=== PATIENT | male | born 1960 | race Caucasian/White ===

== ENCOUNTER 2016-06-24 07:17 | Outpatient (CLI) | payer OTHER | END 2016-06-24 07:18 | disposition home or self-care (01) | DX: I10 Essential (primary) hypertension (principal); E78.5 Hyperlipidemia, unspecified; E74.39 Other disorders of intestinal carbohydrate absorption ==

== ENCOUNTER 2016-10-21 07:08 | Outpatient (CLI) | payer OTHER | END 2016-10-21 07:09 | disposition home or self-care (01) | DX: I10 Essential (primary) hypertension (principal) ==

== ENCOUNTER 2023-01-15 13:10 | Outpatient (CLI) | payer OTHER ==
[2023-01-15] MEDS ORDERED: iohexoL-300 100 ML VIAL IVP ONE (15:06)
--- NOTE | 2023-01-15 18:28 | CT Report ---
PROCEDURE: IVP INDICATIONS: URINARY RETENTION CONTRAST: 100mL Omni 300 TECHNIQUE: Noncontrast images of the abdomen and pelvis obtained. After the administration of intravenous contra st, 5 mm thick sections acquired from the diaphragms to the symphysis. 5 mm thick coronal and sagitt al reformats were acquired. For radiation dose reduction, the following was used: automated exposur e control, adjustment of mA and/or kV according to patient size. COMPARISON: None. FINDINGS: Visualized lung bases: No pleural effusion. Liver and biliary tree: No suspect focal hepatic lesion. No biliary ductal dilation. Gallbladder: No radiopaque cholelithiasis. Spleen: Unremarkable. Pancreas: Unremarkable. Adrenal glands: Unremarkable. Kidneys and ureters: Large enhancing solid left renal mass, heterogeneously attenuating with possible cystic or necrotic components. Approximate dimensions of 14.7 x 10.1 x 19.1 cm measured on series 6 image 37 and series 9 image 21. The mass abuts the left psoas muscle, perirenal fascia, and extends i nto the renal sinus. There is possible extension into the left renal vein versus contrast mixing beti fact. No hydronephrosis bilaterally. No definite evidence of a solid right renal mass. Gastrointestinal tract: No bowel obstruction. Moderate predominantly sigmoid colonic diverticulosis w ithout evidence of acute diverticulitis. Peritoneal cavity: No free air or free fluid. Bladder: Unremarkable. Pelvic organs: Unremarkable CT appearance. Vasculature: No abdominal aortic aneurysm. Lymph nodes: retroperitoneal adenopathy is present highly suspicious for metastatic disease, for exam ple a left periaortic lymph node measuring 3.7 x 3.3 cm on series 6 image 41. Abdominal wall: Fat-containing periumbilical hernia Musculoskeletal: Degenerative change of the spine. Lytic lesion involving the left iliac bone and lef t aspect of the sacrum with associated soft tissue component measuring 5.8 x 4.1 cm on series 6 image 76. Indeterminate lucent focus right femoral head on series 6 image 89, attention on follow-up recom mended. IMPRESSION: 1. Large left renal mass highly suspicious for neoplasm such as renal cell carcinoma. There is possib le involvement of the left renal vein versus contrast mixing artifact. 2. Retroperitoneal adenopathy is present suspicious for metastatic disease. 3. Left pelvic bony lesion with soft tissue component suspicious for osseous metastatic disease. Reviewed by: Bharathi Clark MD on 01/15/2023 6:27 PM PDT Approved by: Bharathi Clark MD on 01/15/2023 6:27 PM PDT Station ID: [id number]
== END 2023-01-15 13:11 | disposition home or self-care (01) ==
LOC: DI 13:10
PROVIDERS: ATTEND Registered Nurse
DX: N28.89 Other specified disorders of kidney and ureter (principal); R33.8 Other retention of urine; R31.9 Hematuria, unspecified; R59.0 Localized enlarged lymph nodes; M89.9 Disorder of bone, unspecified
CPT/HCPCS: 74178; Q9967

== ENCOUNTER 2023-01-24 11:36 | Outpatient (CLI) | payer OTHER ==
[2023-01-24 11:57] LABS: INR 1.1 (0.8-1.2)
== END 2023-01-24 11:37 | disposition home or self-care (01) ==
LOC: LAB 11:36
PROVIDERS: ATTEND Nurse Practitioner Acute Care
DX: N28.89 Other specified disorders of kidney and ureter (principal)
CPT/HCPCS: 36415; 85610

== ENCOUNTER 2023-02-03 16:11 | Emergency (ER) | payer OTHER ==
[2023-02-03 16:45] VITALS: O2SAT 97
[2023-02-03 17:12] LABS: BILIRUBIN,URINE NEGATIVE (NEGATIVE); GLUCOSE, URINE (UA) NEGATIVE (NEGATIVE); KETONES,URINE (UA) NEGATIVE (NEGATIVE); LEUKOCYTE ESTERASE, URINE TRACE (NEGATIVE); NITRITE,URINE NEGATIVE (NEGATIVE); OCCULT BLOOD,URINE NEGATIVE (NEGATIVE); PH,URINE 5.5 PH (5.0-7.5); PROTEIN,URINE TRACE mg/dL (NEGATIVE); UROBILINOGEN,URINE 0.2 (NORMAL) E.U./dL (NORMAL)
[2023-02-03 17:34] LABS: CLARITY,URINE CLEAR (CLEAR)
[2023-02-03 17:47] LABS: RBC,URINE 0-5 /HPF (0-5); SQUAMOUS EPITHELIAL CELL,UR NONE SEEN (<= Few)
[2023-02-03 17:48] LABS: BACTERIA,URINE Rare /HPF (None Seen); CRYSTALS,URINE 11-25 Uric Acid /LPF
--- NOTE | 2023-02-03 17:51 | Ultrasound Report ---
PROCEDURE: Testicle INDICATIONS: testicle swelling, left TECHNIQUE: Real-time scanning was performed of the scrotum and testicles, with image documentation. Color and p ulse Doppler interrogation was performed of both testicles. COMPARISON: None. FINDINGS: Right: Testicle is normal in size at 4.7 x 3.2 x 2.3 cm, and homogenous in echotexture. Epididymis is normal in overall size and morphology. Trace hydrocele. Prominent varicoceles. Overlying scrotal skin is normal in thickness. Left: Testicle is normal in size at 3.8 x 2.9 x 1.7 cm, and homogeneous in echotexture. Epididymis is normal in overall size and morphology. Left epididymis is not well seen. No hydrocele. Prominent v aricoceles. Overlying scrotal skin is normal in thickness. Doppler: Color and pulse Doppler demonstrate normal and symmetric arterial flow in both testicles. IMPRESSION: 1. Left epididymal tail is suboptimally seen. Blood flow appears symmetric. 2. Bilateral varicoceles. 3. No testicular mass. Reviewed by: Talha Miller MD on 02/03/2023 5:49 PM PDT Approved by: Talha Miller MD on 02/03/2023 5:49 PM PDT Station ID: [id number]
[2023-02-03 18:05] VITALS: BP 141/83
--- NOTE | 2023-02-03 18:14 | ED Physician Documentation ---
History of Present Illness - Stated complaint Stated Complaint: - Chief complaint Chief Complaint: General - History obtained from History obtained from: Patient - Additonal information Additional information: This is a 62-year-old male who is currently being evaluated for a large left renal mass and has a biopsy planned for 02/11, presents with several weeks of left scrotal swelling that has become somewhat more painful recently. He also said some swelling in the right but less so than the left. He does not have any dysuria urgency or frequency, no abdominal pain, no nausea vomiting no fever chills. He states he mentioned it to his glass cutter but they apparently told him to just monitor it. He then went into the clinic today and there was concern for acute problems he was sent to the ER for a scrotal ultrasound. He states pain and swelling improves if he lays down or elevates the area but he is on his feet most of the time for work. He has not attempted any medication for this issue. Review of Systems Constitutional: reports: Reviewed and negative Cardiac: reports: Reviewed and negative Respiratory: reports: Reviewed and negative GI: reports: Reviewed and negative : reports: Testicular pain, Testicular mass. denies: Dysuria, Frequency, Hesitancy, Unable to Void Skin: reports: Reviewed and negative PD PAST MEDICAL HISTORY - Past Medical History Past Medical History: Yes Cardiovascular: Hypertension, High cholesterol, Other Respiratory: Other Neuro: None Endocrine/Autoimmune: None GI: GERD, Hiatal hernia : None HEENT: None Psych: None Musculoskeletal: None, Other Derm: None - Past Surgical History Past Surgical History: Yes General: Colonoscopy, EGD - Present Medications Home Medications: Ambulatory Orders Medication Instructions Recorded Confirmed Lisinopril 1 tab PO DAILY 05/09/14 10/23/14 HYDROcod/ACETAM 5/325 [Parmelee 5/325] 1 - 2 tablet PO Q6H PRN #10 tablet 02/03/23 metFORMIN [Glucophage] 500 mg PO BID 02/03/23 - Allergies Allergies/Adverse Reactions: Allergies Allergy/AdvReac Type Severity Reaction Status Date / Time No Known Drug Allergies Allergy Verified 02/03/23 16:31 - Social History Does the pt smoke?: No Smoking Status: Never smoker Does the pt drink ETOH?: Yes Does the pt have substance abuse?: No - Immunizations Immunizations are current?: No Immunizations: TDAP >10years/unknown - POLST Patient has POLST: No PD ED PE NORMAL - Vitals Vital signs reviewed: Yes - General General: Alert and oriented X 3, No acute distress, Well developed/nourished - HEENT HEENT: Atraumatic, Moist mucous membranes - Male Male : Other (There is a large left variococele w/ likely some on the right as well. No scrotal erythema. mild bilat tenderness. No penile irritation, sores, or discharge. ) - Derm Derm: Normal color, Warm and dry Results - Vitals Vitals: Vital Signs - 24 hr 02/03/23 02/03/23 16:29 18:01 Temperature 36.2 C L 36.3 C L Heart Rate 94 87 Respiratory 19 16 Rate Blood Pressure 136/81 H 141/83 H O2 Saturation 97 97 Oxygen O2 Source Room air - Labs Labs: Laboratory Tests 02/03/23 17:04 Urine Color YELLOW Urine Clarity CLEAR Urine pH 5.5 Ur Specific [place] 1.025 Urine Protein TRACE Urine Glucose (UA) NEGATIVE Urine Ketones NEGATIVE Urine Occult Blood NEGATIVE Urine Nitrite NEGATIVE Urine Bilirubin NEGATIVE Urine Urobilinogen 0.2 (NORMAL) Ur Leukocyte Esterase TRACE H Urine RBC 0-5 Urine WBC 6-10 H Ur Squamous Epith Cells NONE SEEN Urine Crystals 11-25 Uric Acid Urine Bacteria Rare Ur Microscopic Review INDICATED Urine Culture Comments INDICATED - Rads (name of study) No standard instances Relevant Findings:: Final report received PD Medical Decision Making - ED course Complexity details: reviewed results, re-evaluated patient, considered differential, d/w patient ED course: 62-year-old male presented with left testicular swelling as described in HPI. The patient has had this for several weeks, does get better when he lays down, worse when he is on his legs all day. He is currently being evaluated for the left renal mass that it sounds like it is concerning for malignancy. We did obtain an ultrasound here which shows bilateral varicoceles, no obvious epididymitis. His Urinalysis shows trace leuk esterase and 6-10 WBCs but no other signs of UTI. The patient has not been a UTI symptoms therefore I will hold off on treatment pending culture. I discussed with patient that this is likely due to his renal mass and he should continue follow-up as planned for his left renal mass but I will also refer him medically to urology for follow-up. As needed for this issue. He was advised to keep elevated whenever possible, as this can help with swelling and discomfort. I will give him a short course of short-term pain medication though advised that typically Tylenol should be sufficient. Return precautions reviewed if any new or worsening symptoms. Departure - Departure Disposition: 01 Home, Self Care Clinical Impression: Left varicocele Condition: Good Instructions: ED Varicocele Follow-Up: Joao Haynes MD [Provider Admit Priv/Credential] - Prescriptions: HYDROcod/ACETAM 5/325 [Parmelee 5/325] 1 - 2 tablet PO Q6H PRN #10 tablet PRN Reason: Pain Comments: You have a large varicocele which may be related to the kidny mass you have. You will need to continue the plan for kidney biopsy and follow up with the specialists for that. I have also referred you to a local urologist named Dr. Joao Haynes; however, they typically will monitor these and I anticipate that they would wait until you have received a diagnosis and treatment for your kidney mass. You can keep the area elevated and often times the swelling goes now if you lay down. I have given you a short course of pain medication but please try to use sparingly. I am prescribing a short course of narcotic pain medication for you. These are potentially dangerous and addictive medications that should be used carefully. These medications may constipate you. Take an yrwl-zvr-[id number] stool softener (docusate) twice daily with plenty of water while taking these medications. If you go 24 hours without a bowel movement, take tveo-ebx-hahibxn miralax, per package instructions. Do not drink or drive while taking these medications. If you received narcotic or sedating medications while in the emergency department, do not drive for 24 hours. Store this medication in a safe, secure place and out of reach of children. It is a violation of federal law to give or sell this medication to another person or to use in a manner other than prescribed. The ED will not refill narcotic prescriptions, including prescriptions lost or stolen. To dispose of unwanted medications: 1. [facility]'s Office provides a drop box for medication in pill form only (no liquids) 8:00 am to 4:30 p.m. Thursday-Thursday in the lobby of the [facility], [address] [place] [address]. Empty pills into ziplock bag before disposal. Call [phone] for information. 2.[employer] is a free service available to all [facility] residents. Go to [email or web address]://[email or web address]/locations/[email or web address]/ Note that many narcotic pain relievers also contain Tylenol/acetaminophen. Please ensure that your total dose of acetaminophen from all sources does not exceed 3 g (3000 mg) per day. Forms: PCP List Discharge Date/Time: 02/03/23 18:01
== END 2023-02-03 18:01 | disposition home or self-care (01) ==
LOC: ED 16:11
DX: I86.1 Scrotal varices (principal); I10 Essential (primary) hypertension; E78.00 Pure hypercholesterolemia, unspecified
CPT/HCPCS: 81001; 81003; 87086; 99283; 99284

== ENCOUNTER 2023-02-19 16:59 | Outpatient (CLI) | payer OTHER ==
[2023-02-19 17:40] LABS: CREATININE 1.6 mg/dL (0.6-1.3)
== END 2023-02-19 17:00 | disposition home or self-care (01) ==
LOC: LAB 16:59
PROVIDERS: ATTEND Urology
DX: N28.89 Other specified disorders of kidney and ureter (principal)
CPT/HCPCS: 36415; 82565

== ENCOUNTER 2023-02-21 09:47 | Outpatient (CLI) | payer OTHER ==
[2023-02-21] MEDS ORDERED: iohexoL-300 100 ML VIAL IVP ONE (12:22)
--- NOTE | 2023-02-21 22:27 | CT Report ---
PROCEDURE: CHEST W INDICATIONS: KIDNEY CA STAGING CONTRAST: 100ml omni 300 TECHNIQUE: After the administration of intravenous contrast, 1 mm axial images were acquired from the pulmonary apices through the posterior costophrenic angles. Axial 5 mm soft tissue kernel reconstructions were performed as well as 8 mm axial MIP and coronal and sagittal 5 mm reformations. For radiation dose reduction, the following was used: automated exposure control, adjustment of mA and/or kV according to patient size. COMPARISON: Relation is made with overlapping portions of abdominal CT, 01/15/2023. FINDINGS: Image quality: Diagnostic Lungs and pleura: There is an ovoid nodule within the left upper lobe on series 3 image 109, measurin g 2.5 x 1.9 cm. Within the lingula, there is an ovoid nodule measuring 6 x 5 mm, as on series 3 image 163. Within the right lung apex, there is an additional nodule seen on series 3 image 37 measuring 4 x 3 m m. No consolidation. No pleural effusions. No pneumothorax. Mediastinum: Heart size is normal. No pericardial effusion. No large vessel abnormality. Incidental n ote is made of a common trunk off of the aorta of the right brachiocephalic artery and the left commo n carotid artery (bovine type aortic arch). This is considered to be a developmental variant of typic ally no clinical consequence. No mediastinal adenopathy by size criteria. Chest wall and lower neck: Thyroid is unremarkable. No axillary or supraclavicular adenopathy by size . Bones: No aggressive osseous abnormality. Upper Abdomen: A prominent left renal mass is partially seen. The visualized portions of the upper ab dominal structures are otherwise within normal limits. IMPRESSION: Bilateral pulmonary nodules are seen, which measure up to 2.5 cm. These represent metastatic disease until proven otherwise. Prominent left renal mass partially seen. No krystin suspicious bony lesions are seen. Additional findings: Bovine type aortic branching pattern. Reviewed by: Orion Mart MD on 02/21/2023 9:26 PM [facility] Approved by: Orion Mart MD on 02/21/2023 9:26 PM [facility] Station ID: [id number]
== END 2023-02-21 09:48 | disposition home or self-care (01) ==
LOC: DI 09:47
PROVIDERS: ATTEND Urology
DX: N28.89 Other specified disorders of kidney and ureter (principal); C78.02 Secondary malignant neoplasm of left lung; C78.01 Secondary malignant neoplasm of right lung
CPT/HCPCS: 71260; Q9967

== ENCOUNTER 2023-02-24 15:41 | Outpatient (CLI) | payer OTHER ==
--- NOTE | 2023-02-24 16:58 | XRAY Report ---
PROCEDURE: Eye Foreign Body INDICATIONS: RETAINED FOREIGN BODY IN UNSPECIFIED EYE TECHNIQUE: A single view of the orbits was acquired. COMPARISON: None. FINDINGS: Soft tissues: No metallic foreign bodies are visualized around the orbits. Bones: Bony structures appear unremarkable. Visualized sinuses appear clear. IMPRESSION: No radiopaque foreign body. Reviewed by: Yara Alba MD, PhD on 02/24/2023 4:57 PM PST Approved by: Yara Alba MD, PhD on 02/24/2023 4:57 PM PST Station ID: [id number]
== END 2023-02-24 15:42 | disposition home or self-care (01) ==
LOC: DI 15:41
PROVIDERS: ATTEND Urology
DX: H02.819 Retained foreign body in unspecified eye, unspecified eyelid (principal)

== ENCOUNTER 2023-02-26 17:11 | Outpatient (CLI) | payer OTHER ==
[~2023-02-26 17:11] MED LIST: GADOTERATE MEGLUMINE 10 MMOL/20 ML VIAL ONE; GADOTERATE MEGLUMINE 5 MMOL/10 ML VIAL ONE
[2023-02-26] MEDS ORDERED: GADOTERATE MEGLUMINE 10 MMOL/20 ML VIAL IVP ONE (17:58)
--- NOTE | 2023-02-26 18:15 | MRI Report ---
PROCEDURE: BRAIN W/WO INDICATIONS: RENAL CELL CARCINOMA CONTRAST: CLARISCAN 20.8 ML TECHNIQUE: Noncontrast axial T1 spin echo, axial T2 fast spin echo, sagittal and axial FLAIR, coronal T2 fast sp in echo, axial gradient echo, axial diffusion and ADC through the brain. After the administration of contrast, axial and coronal T1 spin echo with fat saturation through the brain. COMPARISON: None. FINDINGS: Image quality: Excellent. CSF spaces: Basal cisterns are patent. No extra-axial fluid collections. Ventricles are normal in size and shape. Brain: No midline shift. No intracranial bleeds or masses. No abnormal intracranial enhancement. There is cerebral volume loss for age. There is periventricular white matter chronic small vessel is chemic change. The brainstem appears normal. Diffusion-weighted images demonstrate no acute ischemi c insults. No chronic ischemic insults. Normal intravascular flow voids are present. Skull and face: Calvarial marrow is normal in signal. Orbits appear normal. Sinuses: There is moderate mucosal thickening seen within the inferior aspect of the left maxillary sinus. Sinuses and mastoids otherwise appear clear. IMPRESSION: No masses or abnormal enhancement can be seen. Reviewed by: Orion Mart MD on 02/26/2023 5:14 PM [facility] Approved by: Orion Mart MD on 02/26/2023 5:14 PM [facility] Station ID: [id number]
== END 2023-02-26 17:12 | disposition home or self-care (01) ==
LOC: DI 17:11
PROVIDERS: ATTEND Internal Medicine
DX: C64.9 Malignant neoplasm of unspecified kidney, except renal pelvis (principal)
CPT/HCPCS: 70553; A9575

== ENCOUNTER 2023-02-28 09:00 | Outpatient (CLI) | payer OTHER ==
[2023-02-28 09:39] LABS: INR 1.1 (0.8-1.2); PT - PROTHROMBIN TIME 12.1 secs (9.9-12.6)
[2023-02-28 09:48] LABS: BUN - BLOOD UREA NITROGEN 24 mg/dL (6-20); CALCIUM 10.3 mg/dL (8.5-10.3); CARBON DIOXIDE - CO2 29 mmol/L (21-32); CHLORIDE 101 mmol/L (101-111); CHOL/HDL RATIO 7.9 (<5.0); CHOLESTEROL 182 mg/dL; CREATININE 1.3 mg/dL (0.6-1.3); GFR - MDRD 56 (>89); GLUCOSE 134 mg/dL (74-104); HDL CHOLESTEROL 23 mg/dL; LDL CHOLESTEROL,CALCULATED 115 mg/dL; POTASSIUM 4.8 mmol/L (3.5-4.5); SODIUM 136 mmol/L (135-145); TRIGLYCERIDES 222 mg/dL (48-352); VLDL CHOLESTEROL 44 mg/dL
[2023-02-28 09:50] LABS: CREATININE,URINE 116.3 mg/dL; MICROALBUM/CREATININE RATIO,UR 123.8 ug/mg (<30.0); MICROALBUMIN,URINE 14.4 mg/dL
[2023-02-28 10:58] LABS: ESTIMATED AVERAGE GLUCOSE 126 mg/dL (70-100)
== END 2023-02-28 09:01 | disposition home or self-care (01) ==
LOC: LAB 09:00
PROVIDERS: ATTEND Nurse Practitioner Acute Care
DX: N18.30 Chronic kidney disease, stage 3 unspecified (principal); Z13.220 Encounter for screening for lipoid disorders; R73.9 Hyperglycemia, unspecified; N28.89 Other specified disorders of kidney and ureter
CPT/HCPCS: 36415; 80048; 80061; 82043; 82570; 83036; 83721; 85610

== ENCOUNTER 2023-03-25 07:30 | Outpatient (CLI) | payer OTHER ==
[2023-03-25] MEDS ORDERED: iohexoL-300 100 ML VIAL IVP ONE (08:52)
[2023-03-25] MEDS ORDERED: DIATRIZOATE MEGLU/DIATRIZO SOD 30 ML BOTTLE PO ONE (08:53)
--- NOTE | 2023-03-25 13:24 | CT Report ---
PROCEDURE: CHEST W INDICATIONS: RENAL CANCER CONTRAST: 100ml omni 300 TECHNIQUE: After the administration of intravenous contrast, 1 mm axial images were acquired from the pulmonary apices through the posterior costophrenic angles. Axial 5 mm soft tissue kernel reconstructions were performed as well as 8 mm axial MIP and coronal and sagittal 5 mm reformations. For radiation dose reduction, the following was used: automated exposure control, adjustment of mA and/or kV according to patient size. COMPARISON: CT chest 02/21/2023. FINDINGS: Image quality: Good. Lungs and pleura: No consolidation. Airways are clear. No pleural effusions. No pneumothorax. A few p ulmonary nodules. For example: -Right apex 0.5 cm, (3/55), unchanged. -Right lower lobe 1 cm, (3/178), previously 0.5 cm. -Left upper lobe 2.8 x 1.9 cm, (3/115), 2.6 x 2 cm. Unchanged in the cranial caudal dimension. Mediastinum: Heart size is normal. No pericardial effusion. No large vessel abnormality. No mediastin al adenopathy by size criteria. Chest wall and lower neck: Thyroid is unremarkable. No axillary or supraclavicular adenopathy by size . Bones: No aggressive osseous abnormality. Upper Abdomen: Left renal mass. Please see separately dictated same day CT abdomen pelvis. IMPRESSION: 1. A few pulmonary metastases. Two of which are mildly increased in size. 2. No adenopathy. No suspicious osseous lesion. Please see separately dictated same day CT abdomen pelvis. Reviewed by: Talha Miller MD on 03/25/2023 1:23 PM PST Approved by: Talha Miller MD on 03/25/2023 1:23 PM PST Station ID: [id number]
--- NOTE | 2023-03-25 13:46 | CT Report ---
PROCEDURE: ABDOMEN/PELVIS W INDICATIONS: RENAL CANCER CONTRAST: 100ml omni 300 TECHNIQUE: After the administration of intravenous contrast, 5 mm thick sections acquired from the diaphragms to the symphysis. 5 mm thick coronal and sagittal reformats were acquired. For radiation dose reducti on, the following was used: automated exposure control, adjustment of mA and/or kV according to steven ent size. COMPARISON: CT IVP 01/15/2023. FINDINGS: Image quality: Excellent. Lung bases and heart: Please see submitted dictated same-day CT chest. Pulmonary metastases. Liver: No solid mass. Gallbladder and biliary tree: No radiopaque stones or wall thickening. No biliary dilation. Spleen: No splenomegaly. Pancreas: No pancreatic ductal dilation. Adrenals: No adrenal nodule. Kidneys and ureters: Large heterogeneous left renal mass measuring 15.2 x 13.7 x 10.9 cm, estimated v olume of 1180 cc, ( and ), previously remeasured 15.7 x 13.4 x 11.1 cm, estimated volume of 1 214 cc, on 01/15/2023. Not felt to be significantly changed. There is partially occlusive tumor thrombus in the left renal vein, (236), new. Close proximity to t he IVC confluence. Bowel and peritoneum: Duodenal diverticulum. No bowel distension. No pathologic free fluid. Diverticu losis. Normal appendix. Lymph nodes: Retroperitoneal adenopathy. For example: -Left periaortic node measuring 3 cm, (2/43), unchanged. -Left periaortic node measuring 1.5 cm, (2/50), previously 0.8 cm. Vessels: No infrarenal aortic aneurysm. Circumferential calcified plaque. Left perinephric varices. L eft varicocele. PELVIS Reproductive organs: Unremarkable. Bladder: No abnormal wall thickening, accounting for underdistention. Pelvic lymph nodes: No pelvic adenopathy by size criteria. Bones: Left ilium/left sacrum expansile osseous lesion measuring 8.3 x 4.5 cm, (), previously 5.8 x 4.1 cm Right femoral neck lytic lesion measuring 3.8 cm, (), previously 1.8 cm. Other: Fat-containing umbilical hernia. IMPRESSION: 1. Left renal mass measuring 15.2 cm is not significant change in size. 2. 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 3. Retroperitoneal adenopathy. One of the nodes is increased in size. 4. Enlarging osseous lesions at the left ilium/sacrum and right femoral neck. Reviewed by: Talha Miller MD on 03/25/2023 1:45 PM PST Approved by: Talha Miller MD on 03/25/2023 1:45 PM PST Station ID: [id number]
== END 2023-03-25 07:31 | disposition home or self-care (01) ==
LOC: DI 07:30
PROVIDERS: ATTEND Internal Medicine Hematology & Oncology
DX: C64.9 Malignant neoplasm of unspecified kidney, except renal pelvis (principal); C78.00 Secondary malignant neoplasm of unspecified lung; I82.3 Embolism and thrombosis of renal vein; R59.0 Localized enlarged lymph nodes; M89.9 Disorder of bone, unspecified; C79.89 Secondary malignant neoplasm of other specified sites
CPT/HCPCS: 71260; 74177; Q9963; Q9967

== ENCOUNTER 2023-06-27 10:31 | Outpatient (CLI) | payer OTHER ==
[2023-06-27 10:58] LABS: CREATININE 1.2 mg/dL (0.6-1.3); POTASSIUM 4.4 mmol/L (3.5-4.5)
[2023-06-27 11:38] LABS: ESTIMATED AVERAGE GLUCOSE 123 mg/dL (70-100); HEMOGLOBIN A1c% 5.9 % (4.27-6.07)
== END 2023-06-27 10:32 | disposition home or self-care (01) ==
LOC: LAB 10:31
PROVIDERS: ATTEND Nurse Practitioner Acute Care
DX: N18.30 Chronic kidney disease, stage 3 unspecified (principal); E11.9 Type 2 diabetes mellitus without complications
CPT/HCPCS: 36415; 80048; 83036